=== PATIENT | male | born 1970 | race African-American/Black ===

== ENCOUNTER 2017-02-09 13:07 | Emergency (ER) | payer SELFPAY ==
[~2017-02-09] VITALS: Ht 188 cm; Wt 95.3 kg
[2017-02-09 13:07] VITALS: BP 135/90
== END 2017-02-09 13:55 | disposition home or self-care (01) ==
LOC: ER 13:12
DX: M79.1 Myalgia (principal)
CPT/HCPCS: 99281; A4606; Z7610; Z7502

== ENCOUNTER 2017-12-18 18:39 | Emergency (ER) | payer SELFPAY ==
[~2017-12-18] VITALS: Ht 185.4 cm; Wt 97.5 kg
[2017-12-18 19:17] VITALS: BP 127/64
[2017-12-18 22:41] LABS: APPEARANCE,URINE CLEAR (CLEAR); BILIRUBIN,URINE NEGATIVE (NEGATIVE); BLOOD, URINE TRACE-INTA Ery/uL (NEGATIVE); COLOR,URINE YELLOW (YELLOW); KETONES,URINE NEGATIVE (NEGATIVE); LEUKOCYTE ESTERASE ,URINE NEGATIVE (NEGATIVE); NITRITE, URINE NEGATIVE (NEGATIVE); PROTEIN,URINE NEGATIVE (NEGATIVE); UGLUCOSE NEGATIVE (NEGATIVE); UROBILINOGEN,URINE 0.2 EU/dL (0.2)
[2017-12-18 22:48] LABS: BACTERIA,URINE Rare /HPF (None Seen); RBC,URINE 0-2 /HPF (0-2); SQUAMOUS EPITHELIAL CELL,UR Few /HPF (None Seen); WBC,URINE 0-2 /HPF (0-3)
== END 2017-12-18 22:26 | disposition home or self-care (01) ==
LOC: ER 18:40
DX: N43.3 Hydrocele, unspecified (principal); N45.1 Epididymitis; Z98.890 Other specified postprocedural states
CPT/HCPCS: 76870; 81001; 87491; 87591; 99285; A4606; Z7610; 81000-TC

== ENCOUNTER 2019-02-20 11:02 | Emergency (ER) | payer SELFPAY ==
[~2019-02-20] VITALS: Ht 188 cm; Wt 101.6 kg
[2019-02-20 11:23] VITALS: BP 147/97
[2019-02-20] MEDS ORDERED: IBUPROFEN 600 MG TABLET PO ONE (12:00)
--- NOTE | 2019-02-20 12:03 | NUR ---
For discharge- Sfter care instructions given verbalized understanding Ambulatory home stable
== END 2019-02-20 12:11 | disposition home or self-care (01) ==
LOC: ER 11:02
DX: K04.7 Periapical abscess without sinus (principal); Z98.890 Other specified postprocedural states; Z60.2 Problems related to living alone

== ENCOUNTER 2019-03-29 17:27 | Emergency (ER) | payer MEDICAID ==
[~2019-03-29] VITALS: Ht 188 cm; Wt 99.8 kg
--- NOTE | 2019-03-29 17:57 | NUR ---
CAME IN FOR LEFT SHOULDERT/NECK PAIN SINCE HE CAUGHT A FALLING LUGGAGE 5 DAYS AGO. TO ER BED 11, HOOKED TO MONITOR, PROVIDED W WARM BLANKETJED AT BEDSIDE
--- NOTE | 2019-03-29 18:00 | NUR ---
Surinder valdes in EDM - 03/29/19 at 1909 by SLIM CAME IN FOR LEFT SHOULDER/NECK PAIN SINCE HE CAUGHT A FALLING LUGGAGE 5 DAYS AGO. TO ER BED 11, HOOKED TO MONITOR, PROVIDED W WARM BLANKET, AWAITING MD MELLO.
[2019-03-29] MEDS ORDERED: IBUPROFEN 600 MG TABLET PO ONE ×2 (18:30)
--- NOTE | 2019-03-29 19:26 | NUR ---
REPORT GIVEN TO DANIS DE LA FUENTE FOR MADHAVI
--- NOTE | 2019-03-29 20:05 | NUR ---
Patient discharged to home in stable condition. Written Rx and verbal after care instructions given. Patient verbalizes understanding of instruction.
[2019-03-29 20:10] VITALS: BP 133/92
== END 2019-03-29 20:12 | disposition home or self-care (01) ==
LOC: ER 17:28
DX: M25.512 Pain in left shoulder (principal); Z98.890 Other specified postprocedural states; Z60.2 Problems related to living alone
CPT/HCPCS: 73030-TC

== ENCOUNTER 2019-04-05 13:36 | Emergency (ER) | payer MEDICAID ==
[~2019-04-05] VITALS: Ht 188 cm; Wt 99.8 kg
--- NOTE | 2019-04-05 14:38 | NUR ---
PT BIBSELF FOR CP/SOB; PT AAOX4, PT AMBULATORY, PT ON MONITOR, VSS, NAD NOTED, PENDING MD MELLO
[2019-04-05 15:01] LABS: EOSINOPHILS % (AUTO) 4.8 % (0.0-6.0); HEMATOCRIT 41 % (39-51); HEMOGLOBIN 13.7 g/dL (13.5-17.5); LYMPHOCYTES # (AUTO) 1.6 /CMM (0.8-4.8); LYMPHOCYTES % (AUTO) 39.6 % (20.0-44.0); MEAN CORPUSCULAR HGB CONC 34 g/dl (31.0-36.0); MEAN CORPUSCULAR VOLUME 85 fL (80-96); MONOCYTES # (AUTO) 1.1 /CMM (0.1-1.30); NEUTROPHILS # (AUTO) 1.1 /CMM (1.8-8.9); NEUTROPHILS % (AUTO) 28.6 % (43.0-81.0); PLATELET COUNT (AUTO) 188 /CMM (150-450); RED BLOOD CELL COUNT(AUTO) 4.77 MIL/uL (4.5-6.0)
[2019-04-05 15:09] LABS: CALCIUM, SERUM 9.4 mg/dL (8.5-10.1); CARBON DIOXIDE 30 mmol/L (21-32); CHLORIDE 105 mmol/L (98-107); GLUCOSE 88 mg/dL (74-106); POTASSIUM 4.3 mmol/L (3.5-5.1); SODIUM SERUM 141 mmol/L (136-145); UREA NITROGEN, BLOOD 10 mg/dL (7-18)
[2019-04-05 16:02] LABS: BAND % (MANUAL) 1 % (0.0-5.0); NEUTROPHILS % (MANUAL) 32 (42-76)
[2019-04-05 16:03] LABS: EOSINOPHILS % (MANUAL) 5 % (0-4); LYMPHOCYTES % (MANUAL) 51 % (16-48); MONOCYTES % (MANUAL) 11 % (0-11.0)
--- NOTE | 2019-04-05 16:28 | NUR ---
Patient discharged to home in stable condition. Written and verbal after care instructions given. Patient verbalizes understanding of instruction. IV removed. Catheter intact and site benign. Pressure and 4x4 applied to site. No bleeding noted.
[2019-04-05 16:31] VITALS: BP 139/90
== END 2019-04-05 16:33 | disposition home or self-care (01) ==
LOC: ER 13:36
DX: R07.89 Other chest pain (principal); Z98.890 Other specified postprocedural states; Z60.2 Problems related to living alone
CPT/HCPCS: 36415; 71045-TC; 80048-TC; 84484-TC; 85025-TC

== ENCOUNTER 2019-07-14 15:06 | Emergency (ER) | payer MEDICAID ==
[~2019-07-14] VITALS: Ht 188 cm; Wt 97.5 kg
[2019-07-14 15:24] VITALS: BP 143/105
[2019-07-14] MEDS ORDERED: KETOROLAC TROMETHAMINE INJ 60 MG/2 ML VIAL IM ONE (16:15)
[2019-07-14] MEDS ORDERED: DIAZEPAM 5 MG TABLET ONE (16:16)
[2019-07-14] MEDS: DIAZEPAM 10 MG TABLET PO ONE (16:29)
[2019-07-14] MEDS: KETOROLAC TROMETHAMINE INJ 60 MG/2 ML VIAL IM ONE (16:29)
[2019-07-14] MEDS ORDERED: IBUPROFEN 400 MG TABLET ONE (16:35)
[2019-07-14] MEDS: IBUPROFEN 400 MG TABLET PO ONE (16:37)
== END 2019-07-14 17:25 | disposition home or self-care (01) ==
LOC: ER 15:10
DX: M54.2 Cervicalgia (principal); M54.12 Radiculopathy, cervical region; M19.012 Primary osteoarthritis, left shoulder; Z60.2 Problems related to living alone
CPT/HCPCS: 72125-TC; J1885

== ENCOUNTER 2021-08-25 11:21 | Emergency (ER) | payer OTHER ==
[~2021-08-25] VITALS: Ht 188 cm; Wt 99.8 kg
[2021-08-25 11:57] VITALS: BP 137/81
[2021-08-25] MEDS ORDERED: HYDROCODONE/APAP 5/325MG TABLET ONE (12:57)
--- NOTE | 2021-08-25 12:58 | NUR ---
Patient c/o pain in right ankle. MD notified. Verbal order to give Galt 5mg PO. will medicate as ordered.
[2021-08-25] MEDS ORDERED: HYDROCODONE/APAP 5/325MG TABLET PO ONE (13:00)
--- NOTE | 2021-08-25 13:01 | NUR ---
Patient medicated as ordered.
[2021-08-25] MEDS ORDERED: TRAM50TA2 PO (13:02)
[2021-08-25] MEDS ORDERED: IBUP-1955 PO (13:02)
[2021-08-25] MEDS ORDERED: HYDR-4209 PO (13:09)
--- NOTE | 2021-08-25 13:22 | NUR ---
Patient given a short leg posterior splint on right leg by tech. Patient is provided with crutches and gait training as well. Patient displays/verbalizes understanding of teachings.
--- NOTE | 2021-08-25 13:23 | NUR ---
Patient discharged to home in stable condition. Written and verbal after care instructions given. Patient verbalizes understanding of instruction.
--- NOTE | 2021-08-25 13:27 | NUR ---
Patient will call Samm/ Sana to pick him up.
== END 2021-08-25 13:27 | disposition home or self-care (01) ==
LOC: ER 11:29
DX: S86.011A Strain of right Achilles tendon, initial encounter (principal); Z98.890 Other specified postprocedural states; Z60.2 Problems related to living alone; X50.1XXA Overexertion from prolonged static or awkward postures, initial encounter; Y93.67 Activity, basketball; Y92.310 Basketball court as the place of occurrence of the external cause; Y99.8 Other external cause status
CPT/HCPCS: 73590-TC

== ENCOUNTER 2021-09-29 17:15 | Emergency (ER) | payer OTHER ==
[~2021-09-29] VITALS: Ht 188 cm; Wt 99.8 kg
[~2021-09-29 17:15] MED LIST: HYDR-4209 PO; IBUP-1955 PO; TRAM50TA2 PO
[2021-09-29 19:22] VITALS: BP 138/77
--- NOTE | 2021-09-29 19:22 | NUR ---
Patient discharged to home in stable condition. Written and verbal after care instructions given. Patient verbalizes understanding of instruction.
== END 2021-09-29 19:22 | disposition home or self-care (01) ==
LOC: ER 17:19
DX: R40.0 Somnolence (principal); T45.515A Adverse effect of anticoagulants, initial encounter; T39.315A Adverse effect of propionic acid derivatives, initial encounter; T40.2X5A Adverse effect of other opioids, initial encounter; Z98.890 Other specified postprocedural states; Z60.2 Problems related to living alone; Y92.89 Other specified places as the place of occurrence of the external cause

== ENCOUNTER 2022-02-04 20:12 | Emergency (ER) | payer OTHER ==
[~2022-02-04] VITALS: Ht 188 cm; Wt 99.8 kg
--- NOTE | 2022-02-04 20:01 | NUR ---
BIBS C/O FEELING "JITTERY" AFTER TAKING 1 YEAR OXYCODONE 1.5 HOURS LOAN [employer]. PT AWAKE A/OX4. TOELRATING R/A WELL WITH NO SOB.
--- NOTE | 2022-02-04 20:08 | NUR ---
BIBS C/O FEELING "JITERRY" AND ANXIOUS S/P TAKING PRESCRIPTION OF OXYCODONE. PT ENDORSES HAVING TAKEN THE PRESCRIBED AMOUNT AND HAS NOT INGESTED ANY OTHER SUBSTANCES OR ALCOHOL. PT DENIES AND PALPITATIONS, SOB, OR PAIN. PT ALERT AND ORIENTED X4 V/S ASSESSED AND ALL WITHIN NORMAL LIMITS.
[2022-02-04 20:40] VITALS: BP 134/82
--- NOTE | 2022-02-04 20:40 | NUR ---
Patient discharged to home in stable condition. Written and verbal after care instructions given. Patient verbalizes understanding of instruction.
== END 2022-02-04 20:41 | disposition home or self-care (01) ==
LOC: ER 20:12
DX: T40.2X1A Poisoning by other opioids, accidental (unintentional), initial encounter (principal); F41.9 Anxiety disorder, unspecified; Z87.2 Personal history of diseases of the skin and subcutaneous tissue; Z60.2 Problems related to living alone; Z79.891 Long term (current) use of opiate analgesic; Z79.1 Long term (current) use of non-steroidal anti-inflammatories (NSAID); Z79.899 Other long term (current) drug therapy; Y92.89 Other specified places as the place of occurrence of the external cause

== ENCOUNTER 2022-04-06 02:30 | Emergency (ER) | payer OTHER ==
[~2022-04-06] VITALS: Ht 188 cm; Wt 99.8 kg
[2022-04-06 03:09] VITALS: BP 137/86
[2022-04-06] MEDS ORDERED: MECL-159 PO (03:24)
[2022-04-06] MEDS ORDERED: MECLIZINE HCL 25 MG TABLET ONE (03:26)
--- NOTE | 2022-04-06 03:29 | NUR ---
Patient discharged to home in stable condition. Written and verbal after care instructions given. Patient verbalizes understanding of instruction.
[2022-04-06] MEDS ORDERED: MECLIZINE HCL 25 MG TABLET PO ONE (03:30)
== END 2022-04-06 03:32 | disposition home or self-care (01) ==
LOC: ER 02:36
DX: R42 Dizziness and giddiness (principal); I10 Essential (primary) hypertension; Z60.2 Problems related to living alone; Z79.899 Other long term (current) drug therapy
CPT/HCPCS: 99282; J8597

== ENCOUNTER 2023-04-07 14:06 | Emergency (ER) | payer OTHER ==
[~2023-04-07] VITALS: Ht 188 cm; Wt 100.2 kg
[~2023-04-07 14:06] MED LIST changes: +MECL-159 PO
--- NOTE | 2023-04-07 14:25 | NUR ---
C/O SUBSTERNAL "DISCOMFORT" SINCE LAST NIGHT. NON RADIATING. ALSO C/O RIGHT HIP "GRINDING" FOR "MONTHS". DENIES TRAUMA.
--- NOTE | 2023-04-07 15:10 | NUR ---
EKG DONE BY EMT
--- NOTE | 2023-04-07 15:15 | NUR ---
IV LINE 20 G LAC
--- NOTE | 2023-04-07 15:18 | NUR ---
BLOOD SAMPLE SENT TO LAB
[2023-04-07 16:13] LABS: CALCIUM, SERUM 9.6 mg/dL (8.5-10.1); CARBON DIOXIDE 28 mmol/L (21-32); CHLORIDE 104 mmol/L (98-107); CREATININE 1.2 mg/dL (0.6-1.3); GLUCOSE 98 mg/dL (74-106); POTASSIUM 4.4 mmol/L (3.5-5.1); SODIUM SERUM 140 mmol/L (136-145); UREA NITROGEN, BLOOD 11 mg/dL (7-18)
[2023-04-07 16:28] LABS: BASOPHILS # (AUTO) 0.1 K/uL (0.0-0.2); BASOPHILS % (AUTO) 1.1 % (0.0-2.0); EOSINOPHILS % (AUTO) 4.1 % (0.0-6.0); HEMATOCRIT 42 % (39-51); HEMOGLOBIN 13.6 g/dL (13.5-17.5); LYMPHOCYTES % (AUTO) 35.3 % (20.0-44.0); MEAN CORPUSCULAR HGB CONC 32 g/dl (31.0-36.0); MEAN CORPUSCULAR VOLUME 85 fL (80-96); MONOCYTES # (AUTO) 0.5 K/uL (0.1-1.30); MONOCYTES % (AUTO) 8.8 % (2.0-12.0); NEUTROPHILS # (AUTO) 2.9 K/uL (1.8-8.9); NEUTROPHILS % (AUTO) 50.7 % (43.0-81.0); PLATELET COUNT (AUTO) 230 K/uL (150-450); RED BLOOD CELL COUNT(AUTO) 4.94 MIL/uL (4.5-6.0); WHITE BLOOD COUNT (AUTO) 5.7 K/uL (4.3-11.0)
[2023-04-07 19:16] VITALS: BP 130/77
== END 2023-04-07 19:17 | disposition home or self-care (01) ==
LOC: ER 14:21
DX: R07.89 Other chest pain (principal); Z98.890 Other specified postprocedural states; Z60.2 Problems related to living alone; Z79.899 Other long term (current) drug therapy
CPT/HCPCS: 36415; 71045-TC; 73502; 80048-TC; 83880; 84484-TC; 85025-TC

== ENCOUNTER 2023-08-05 19:04 | Emergency (ER) | payer OTHER ==
[~2023-08-05] VITALS: Ht 188 cm; Wt 99.8 kg
[2023-08-05 19:15] VITALS: BP 138/68; TEMP 98.4; O2SAT 100
[2023-08-05] MEDS ORDERED: IBUP-1955 PO (21:20)
[2023-08-05] MEDS ORDERED: METH-649 PO (21:20)
== END 2023-08-05 21:31 | disposition home or self-care (01) ==
LOC: ER 19:10
DX: M54.50 Low back pain, unspecified (principal); Z60.2 Problems related to living alone